=== PATIENT | male | born 1935 | race Caucasian/White ===

== ENCOUNTER 2018-10-08 10:14 | Observation (INO) ==
[2018-10-08] MEDS ORDERED: ACETAMINOPHEN 325 MG TABLET PO PRN (11:40)
[2018-10-08] MEDS ORDERED: ONDANSETRON 4 MG/2 ML VIAL IV PRN (11:40)
[2018-10-08 12:43] LABS: Basophils % 0.5 % (0.0-0.8); Eosinophils # 0.1 10*3/uL (0.0-0.87); Eosinophils % 1.8 % (0.00-10.9); Hematocrit 49.8 VOL% (42.0-52.0); Hemoglobin 16.3 GM/DL (14.0-18.0); Immature Granulocytes % 0.2 %; Immature Granulocytes Absolute 0.01 #; Lymphocytes # 1.8 10*3/uL (1.4-4.0); Lymphocytes % 29.7 % (21.2-54.2); Mean Corpuscular HGB Conc 32.7 GM/DL (32-36); Mean Corpuscular Volume 90.4 FL (87-102); Mean Platelet Volume 9.8 FL (9.6-12.0); Monocytes % 10.1 % (1.7-12.7); Neutrophils % 57.7 % (38.7-73.9); Platelet Count 205 T/CUMM (130-400); Red Blood Count 5.51 MC/CUMM (3.8-5.5); Red Cell Distribution Width 13.1 % (9.3-17.3)
[2018-10-08 13:08] LABS: Albumin 3.7 G/DL (3.4-5.0); Calcium 9.3 MG/DL (8.5-10.1); Osmolality,Calculated 283.1 MOS/KG (273-304); Total Protein 6.5 G/DL (6.4-8.3); Troponin I < 0.015 NG/ML (0.00-0.045)
[2018-10-08] MEDS: OMEGA 3 ACID ETHYL ESTERS 1 GM CAPSULE PO SCH (20:57)
[2018-10-08] MEDS ORDERED: MELATONIN 3 MG TABLET PO SCH (21:00)
[2018-10-08] MEDS ORDERED: SIMVASTATIN 40 MG TABLET PO SCH (21:00)
[2018-10-09] MEDS: LISINOPRIL 10 MG TABLET PO SCH ×2 (00:12→09:48)
[2018-10-09] MEDS: DOCUSATE SODIUM 100 MG CAPSULE PO SCH ×2 (00:12→09:44)
[2018-10-09 05:16] LABS: Basophils % 0.6 % (0.0-0.8); Eosinophils # 0.2 10*3/uL (0.0-0.87); Eosinophils % 3.2 % (0.00-10.9); Hematocrit 48.8 VOL% (42.0-52.0); Hemoglobin 15.4 GM/DL (14.0-18.0); Immature Granulocytes % 0.5 %; Immature Granulocytes Absolute 0.03 #; Lymphocytes # 1.9 10*3/uL (1.4-4.0); Lymphocytes % 28.7 % (21.2-54.2); Mean Corpuscular HGB Conc 31.6 GM/DL (32-36); Mean Corpuscular Volume 92.4 FL (87-102); Monocytes % 11.1 % (1.7-12.7); Neutrophils % 55.9 % (38.7-73.9); Platelet Count 205 T/CUMM (130-400); Red Blood Count 5.28 MC/CUMM (3.8-5.5); White Blood Count 6.6 T/CUMM (4-12)
[2018-10-09 05:29] LABS: Calcium 9.2 MG/DL (8.5-10.1)
[2018-10-09 07:51] VITALS: BP 141/80
[2018-10-09] MEDS ORDERED: PANTOPRAZOLE 40 MG TABLET PO SCH (09:00)
[2018-10-09] MEDS ORDERED: ASPIRIN 325 MG TABLET PO SCH ×3 (09:00→21:00)
[2018-10-09] MEDS ORDERED: CHOLECALCIFEROL 400 UNIT TABLET PO SCH (09:00)
[2018-10-09] MEDS ORDERED: METOPROLOL SUCCINATE XL 25 MG TABLET PO SCH (09:30)
[2018-10-09] MEDS: OMEGA 3 ACID ETHYL ESTERS 1 GM CAPSULE PO SCH (09:49)
[2018-10-10] MEDS ORDERED: METOPROLOL SUCCINATE XL 25 MG TABLET PO SCH (09:00)
== END 2018-10-09 12:10 | disposition home health service (06) ==
LOC: N.TELEN
PROVIDERS: ADMIT Family Medicine; ATTEND Family Medicine

== ENCOUNTER 2018-12-06 10:21 | Inpatient (IN) ==
[2018-12-06] MEDS ORDERED: ONDANSETRON 4 MG/2 ML VIAL IV PRN (12:05)
[2018-12-06] MEDS ORDERED: ACETAMINOPHEN 325 MG TABLET PO PRN (12:07)
[2018-12-06 12:29] LABS: Basophils # 0.1 10*3/uL (0.0-0.2); Basophils % 0.7 % (0.0-0.8); Eosinophils # 0.1 10*3/uL (0.0-0.87); Eosinophils % 0.8 % (0.00-10.9); Hematocrit 49.6 VOL% (42.0-52.0); Hemoglobin 16.6 GM/DL (14.0-18.0); Immature Granulocytes % 0.3 %; Immature Granulocytes Absolute 0.02 #; Lymphocytes # 1.8 10*3/uL (1.4-4.0); Lymphocytes % 25.2 % (21.2-54.2); Mean Corpuscular HGB Conc 33.5 GM/DL (32-36); Mean Corpuscular Volume 90.2 FL (87-102); Mean Platelet Volume 9.5 FL (9.6-12.0); Platelet Count 221 T/CUMM (130-400); Red Cell Distribution Width 12.9 % (9.3-17.3); White Blood Count 7.2 T/CUMM (4-12)
[2018-12-06 12:49] LABS: Albumin 3.7 G/DL (3.4-5.0); Calcium 9.4 MG/DL (8.5-10.1); Osmolality,Calculated 282.3 MOS/KG (273-304); Total Protein 6.7 G/DL (6.4-8.3)
[2018-12-06 13:01] LABS: Troponin I < 0.015 NG/ML (0.00-0.045)
[2018-12-06] MEDS: SIMVASTATIN 10 MG TABLET PO SCH (20:30)
[2018-12-06] MEDS: ASCORBIC ACID 500 MG TABLET PO SCH (20:30)
[2018-12-06] MEDS ORDERED: METOPROLOL TARTRATE 25 MG TABLET PO SCH (21:00)
[2018-12-06] MEDS ORDERED: ALFUZOSIN 10 MG TABLET PO SCH (21:00)
[2018-12-06] MEDS: DOCUSATE SODIUM 100 MG CAPSULE PO SCH (22:06)
[2018-12-07] MEDS: PANTOPRAZOLE 40 MG TABLET PO SCH (08:21)
[2018-12-07] MEDS: DOCUSATE SODIUM 100 MG CAPSULE PO SCH ×2 (08:21→21:01)
[2018-12-07] MEDS: ASCORBIC ACID 500 MG TABLET PO SCH ×2 (08:22→21:00)
[2018-12-07] MEDS: RANOLAZINE 500 MG TABLET PO SCH (20:59)
[2018-12-07] MEDS: SIMVASTATIN 10 MG TABLET PO SCH (21:00)
[2018-12-08] MEDS: RANOLAZINE 500 MG TABLET PO SCH ×2 (08:21→22:11)
[2018-12-08] MEDS: ASCORBIC ACID 500 MG TABLET PO SCH ×2 (08:21→22:10)
[2018-12-08] MEDS: PANTOPRAZOLE 40 MG TABLET PO SCH (08:21)
[2018-12-08] MEDS: DOCUSATE SODIUM 100 MG CAPSULE PO SCH ×2 (09:06→22:10)
[2018-12-08] MEDS: SIMVASTATIN 10 MG TABLET PO SCH (23:59)
[2018-12-09] MEDS: DOCUSATE SODIUM 100 MG CAPSULE PO SCH ×2 (10:06→21:43)
[2018-12-09] MEDS: RANOLAZINE 500 MG TABLET PO SCH ×2 (10:08→21:43)
[2018-12-09] MEDS: PANTOPRAZOLE 40 MG TABLET PO SCH (10:08)
[2018-12-09] MEDS: ASCORBIC ACID 500 MG TABLET PO SCH ×2 (10:09→21:42)
[2018-12-09] MEDS ORDERED: diphenhydrAMINE CAP 25 MG CAPSULE PO ONE (10:25)
[2018-12-09] MEDS ORDERED: DIAZEPAM 5 MG TABLET PO ONE (10:25)
[2018-12-09] MEDS ORDERED: VANCOMYCIN INJ 1,000 MG in SODIUM CHLORIDE 0.9% 250 ML IV ONE (10:25)
[2018-12-09] MEDS ORDERED: VANCOMYCIN 500 MG VIAL IRRIG ONE (10:25)
[2018-12-09] MEDS ORDERED: SODIUM CHLORIDE 0.9% 1,000 ML IV SCH (10:30)
[2018-12-09] MEDS ORDERED: HEPARIN/NACL 0.9% 2 UNITS/ML 500 ML IV ONE (11:28)
[2018-12-09] MEDS ORDERED: LIDOCAINE 1% 20 ML VIAL ONE ×2 (11:29→11:32)
[2018-12-09] MEDS ORDERED: VANCOMYCIN 500 MG VIAL ONE (11:31)
[2018-12-09] MEDS ORDERED: fentaNYL 100 MCG/2 ML VIAL ONE (11:33)
[2018-12-09] MEDS ORDERED: MIDAZOLAM 2 MG/2 ML VIAL ONE (11:33)
[2018-12-09] MEDS ORDERED: TISSUE ADHESIVE 1 EACH APPLICATOR TOP ONE (12:22)
[2018-12-09] MEDS: SIMVASTATIN 10 MG TABLET PO SCH (21:42)
[2018-12-10 04:47] LABS: Basophils # 0.1 10*3/uL (0.0-0.2); Basophils % 0.6 % (0.0-0.8); Eosinophils # 0.1 10*3/uL (0.0-0.87); Eosinophils % 1.3 % (0.00-10.9); Hematocrit 49.2 VOL% (42.0-52.0); Hemoglobin 16.2 GM/DL (14.0-18.0); Immature Granulocytes % 0.5 %; Immature Granulocytes Absolute 0.04 #; Lymphocytes # 1.7 10*3/uL (1.4-4.0); Lymphocytes % 19.5 % (21.2-54.2); Mean Corpuscular HGB Conc 32.9 GM/DL (32-36); Mean Corpuscular Volume 91.1 FL (87-102); Mean Platelet Volume 9.9 FL (9.6-12.0); Monocytes % 13.5 % (1.7-12.7); Neutrophils % 64.6 % (38.7-73.9); Platelet Count 218 T/CUMM (130-400); Red Cell Distribution Width 13.1 % (9.3-17.3); White Blood Count 8.5 T/CUMM (4-12)
[2018-12-10 04:59] LABS: Calcium 8.9 MG/DL (8.5-10.1); Osmolality,Calculated 281.4 MOS/KG (273-304)
[2018-12-10] MEDS: METOPROLOL SUCCINATE XL 25 MG TABLET PO SCH (08:39)
[2018-12-10] MEDS: LISINOPRIL 10 MG TABLET PO SCH (08:40)
[2018-12-10] MEDS: ASCORBIC ACID 500 MG TABLET PO SCH ×2 (08:40→20:41)
[2018-12-10] MEDS: PANTOPRAZOLE 40 MG TABLET PO SCH (08:40)
[2018-12-10] MEDS: DOCUSATE SODIUM 100 MG CAPSULE PO SCH ×2 (08:40→20:41)
[2018-12-10] MEDS: ACETAMINOPHEN 325 MG TABLET PO PRN ×2 (14:30→23:37)
[2018-12-10] MEDS: SIMVASTATIN 10 MG TABLET PO SCH (20:40)
[2018-12-11 08:05] VITALS: BP 114/62
[2018-12-11] MEDS: ASCORBIC ACID 500 MG TABLET PO SCH (08:28)
[2018-12-11] MEDS: LISINOPRIL 10 MG TABLET PO SCH (08:28)
[2018-12-11] MEDS: METOPROLOL SUCCINATE XL 25 MG TABLET PO SCH (08:28)
[2018-12-11] MEDS: DOCUSATE SODIUM 100 MG CAPSULE PO SCH (08:28)
[2018-12-11] MEDS: PANTOPRAZOLE 40 MG TABLET PO SCH (08:28)
== END 2018-12-11 11:03 | disposition home health service (06) | DRG 244 ==
LOC: N.TELES
PROVIDERS: ADMIT Family Medicine; ATTEND Family Medicine